=== PATIENT | male | born 1995 | race Caucasian/White ===

== ENCOUNTER 2021-08-24 15:15 | Emergency (ER) | payer BC ==
[2021-08-24 17:02] LABS: CORONAVIRUS COVID-19 NAA POSITIVE (NEGATIVE)
== END 2021-08-24 17:37 | disposition home or self-care (01) ==
LOC: JD.ED 15:15
DX: U07.1 COVID-19 (principal); Z87.891 Personal history of nicotine dependence
CPT/HCPCS: 0240U; 87651; 99283